=== PATIENT | male | born 2000 | race Caucasian/White ===

== ENCOUNTER 2021-07-04 08:37 | Inpatient (IN) | payer BC ==
[~2021-07-04] VITALS: Ht 190.5 cm; Wt 90.9 kg
[2021-07-04] MEDS ORDERED: AMOXICILLIN/CLA1 TA1 PO (09:09)
[2021-07-04 09:16] LABS: HEMATOCRIT 40.8 % (42.0-52.0); HEMOGLOBIN 14.5 g/dl (13.5-18.0); MEAN CELL VOLUME 90 fl (80.0-100.0); MEAN CORPUSCULAR HEMOGLOBIN 32 pg (27-31); MEAN CORPUSCULAR HGB CONC 36 g/dl (33.0-37.0); PLATELET COUNT 150 K/mm3 (130-400); RED BLOOD COUNT 4.54 M/mm3 (4.20-5.60); REDCELL DISTRIBUTION WIDTH-CV 15.1 % (11.5-14.5)
[2021-07-04 09:22] LABS: COLLECTION METHOD CLEAN CATCH
[2021-07-04 09:24] LABS: ALBUMIN 3.3 gm/dL (3.5-5.0); BILIRUBIN,TOTAL 3.9 mg/dL (0.2-1.2); C-REACTIVE PROTEIN 2.64 mg/dL (0.00-0.50); CALCIUM 8.6 mg/dL (8.4-10.2); CREATININE, serum 0.98 mg/dL (0.72-1.25); POTASSIUM 3.5 mmol/L (3.5-4.5)
[2021-07-04 09:28] LABS: MONOSCREEN POSITIVE
[2021-07-04 09:36] LABS: MUCOUS Present (NOT PRESENT); PH 6 (5-8); SQUAMOUS EPITHELIAL None Seen /hpf (0-10); URINE APPEARANCE Clear (CLEAR/HAZY); URINE BACTERIA None Seen /hpf (NONE SEEN); URINE BILIRUBIN Negative (NEGATIVE); URINE BLOOD 2+ (NEGATIVE); URINE COLOR Amber (YELLOW); URINE GLUCOSE Negative (NEGATIVE); URINE KETONE Trace (NEGATIVE); URINE LEUKOCYTE ESTERASE Negative (NEGATIVE); URINE NITRATE Negative (NEGATIVE); URINE PROTEIN(semi-quant) Negative (NEGATIVE); URINE UROBILINOGEN Negative (NEGATIVE)
[2021-07-04 09:48] LABS: BAND 2 % (0-10); LYMPHOCYTE 77 % (20.0-51.0); NEUTROPHILS 16 % (42.0-75.2)
[2021-07-04 09:49] LABS: PLATELET ESTIMATE NORMAL (NORMAL)
[2021-07-04 10:54] LABS: INR 1.1 (0.8-3.0); PROTHROMBIN TIME 12.3 SECONDS (9.7-12.8)
[2021-07-04] MEDS ORDERED: AMOXICILLIN 8751 TAB (12:13)
[2021-07-04] MEDS ORDERED: TESSALON PERLE200 MG PO (12:14)
[2021-07-04] MEDS ORDERED: ADVIL200 MG PO (12:15)
[2021-07-04 12:28] VITALS: BP 140/76; PULSE 105; TEMP 98.5
--- NOTE | 2021-07-04 12:36 | NUR ---
PT HAS JAUNDICED EYES, TRYING NOT TO TALK DUE TO SORE THROAT, WHITE PATCHES NOTED IN BACK OF PT THROAT, PT REPORTS SEVERE BODY ACHES 8/10 PAIN. PT ONLY MEDICATION USAGE WAS PRESCRIBED FROM URGENT CARE FROM VISIT MONDAY. DENIES ALLERGIES, DR. HENRY NOTIFIED PT HAD ARRIVED, ASSESSMENT PERFORMED, ADMISSION CO MPLETED NO OTHER NEEDS
--- NOTE | 2021-07-04 14:51 | NUR ---
CALLED CONSULT TO DR. HARRIS. PT CURRENTLY IN CT. PAIN MEDICATION GIVEN
[2021-07-04 15:24] VITALS: BP 142/80; PULSE 105; TEMP 99
[2021-07-04 15:44] LABS: STREP SCREEN NEGATIVE
[2021-07-04 19:57] VITALS: BP 131/73; PULSE 97; TEMP 98
--- NOTE | 2021-07-04 20:00 | NUR ---
Patient is resting in bed, alert and oriented x 4, some low tachycardia. NS AT 75 ML/HR. Assessment completed, no further needs at this time. Call light within reach.
[2021-07-05] VITALS (7 sets, daily range): BP systolic 111–144; BP diastolic 66–85; PULSE 90–116; TEMP 97.9–98.4
--- NOTE | 2021-07-05 06:25 | NUR ---
Patient unable to sleep at night. He complained about constant beeping of the IV pump. New IV site started at left forearm. Report will be given to day RN.
[2021-07-05 06:58] LABS: HEMOGLOBIN 13.3 g/dl (13.5-18.0); MEAN CELL VOLUME 90 fl (80.0-100.0); MEAN CORPUSCULAR HEMOGLOBIN 33 pg (27-31); MEAN CORPUSCULAR HGB CONC 37 g/dl (33.0-37.0); MEAN PLATELET VOLUME 10.3 fl (7.4-10.4); PLATELET COUNT 200 K/mm3 (130-400); RED BLOOD COUNT 4.04 M/mm3 (4.20-5.60); REDCELL DISTRIBUTION WIDTH-CV 15.4 % (11.5-14.5)
[2021-07-05 07:17] LABS: ALBUMIN 3.1 gm/dL (3.5-5.0); CALCIUM 8.5 mg/dL (8.4-10.2); CREATININE, serum 0.81 mg/dL (0.72-1.25); POTASSIUM 4.2 mmol/L (3.5-4.5)
[2021-07-05 07:20] LABS: HEMATOCRIT 36.4 % (42.0-52.0)
[2021-07-05 08:52] LABS: BAND 13 % (0-10); LYMPHOCYTE 15 % (20.0-51.0); NEUTROPHILS 71 % (42.0-75.2)
[2021-07-05 08:53] LABS: PLATELET ESTIMATE NORMAL (NORMAL)
[2021-07-05 10:39] LABS: ALBUMIN 3.2 gm/dL (3.5-5.0); BILIRUBIN,DIRECT 1.3 mg/dL (0.0-0.5); BILIRUBIN,TOTAL 2.1 mg/dL (0.2-1.2); TOTAL PROTEIN 7.6 gm/dL (6.2-8.1)
--- NOTE | 2021-07-05 11:48 | NUR ---
PT SITTING UP IN RECLINER. MORNING MEDICATIONS GIVEN. SHIFT ASSESSMENT COMPLETED. PT COMPLAINING OF SWOLLEN THROAT AND CONGESTION. DENIES ANY NEEDS AT THIS TIME. WILL CONTINUE TO MONITOR.
--- NOTE | 2021-07-05 13:48 | NUR ---
First visit from the luggage repairer. No needs right now.
--- NOTE | 2021-07-05 15:24 | NUR ---
mop worker met with patient to discuss discharge plan. Patient's grandmother Manju ([phone]) present at bedside. Patient currently lives at home with his mother Lorena ([phone]). Patient reports that he is a [employer] student however is in the process of working with his advisor to drop this semester due to compounding issues. He is independent with his activities of daily living and does not utilize any DME/O2 at home. Patient does not currently have a DPOA-HC. He is not and his mother is his established NOK. Patient will need a PCP before discharge. Information being obtained from the patient's mother of who not to establish with. Discharge plan: Home with family.
[2021-07-05 19:23] LABS: HEPATITIS A ANTIBODY-IGM Negative (Negative); HEPATITIS B CORE AB,TOTAL Negative (Negative); HEPATITIS B SURFACE ANTIGEN Negative (Negative); HEPATITIS C VIRUS ANTIBODY Negative (Negative)
[2021-07-05 19:57] LABS: HEPATITIS B SURFACE ANTIBODY <2.0 (())
--- NOTE | 2021-07-05 21:00 | NUR ---
Patient is in bed, alert and oriented x 4, VSS, states some pain in his throat. He is getting NS 75 ML/HR. Pain meds prn. Assessment completed, meds provided. No further needs at this time. Call light within reach.
[2021-07-06 00:29] VITALS: BP 123/76; PULSE 92; TEMP 98.2
[2021-07-06 04:25] VITALS: BP 132/71; PULSE 69; TEMP 98
[2021-07-06 06:50] LABS: HEMATOCRIT 37.6 % (42.0-52.0); HEMOGLOBIN 13.1 g/dl (13.5-18.0); MEAN CELL VOLUME 91 fl (80.0-100.0); MEAN CORPUSCULAR HEMOGLOBIN 32 pg (27-31); MEAN CORPUSCULAR HGB CONC 35 g/dl (33.0-37.0); MEAN PLATELET VOLUME 10.2 fl (7.4-10.4); PLATELET COUNT 244 K/mm3 (130-400); RED BLOOD COUNT 4.12 M/mm3 (4.20-5.60); REDCELL DISTRIBUTION WIDTH-CV 15.9 % (11.5-14.5)
[2021-07-06 07:03] LABS: CALCIUM 8.3 mg/dL (8.4-10.2); CREATININE, serum 0.8 mg/dL (0.72-1.25); MAGNESIUM 2.1 mg/dL (1.6-2.6); PHOSPHOROUS 3.8 mg/dL (2.3-4.7); POTASSIUM 4.3 mmol/L (3.5-4.5)
--- NOTE | 2021-07-06 07:07 | NUR ---
PT was not able to sleep along the night. Continues getting IV fluids. Denies SOB. Report given to day RN.
[2021-07-06 07:55] VITALS: BP 132/86; PULSE 88; TEMP 97.7
--- NOTE | 2021-07-06 08:42 | NUR ---
PT SITTING UP ON EDGE OF BED. MORNING MEDICATIONS GIVEN. SHIFT ASSESSMENT COMPLETED. REPORTS CONTINUOUS PAIN IN HIS THROAT OVERNIGHT, WITH DIFFICULTY SWALLOWING. DENIES ANY OTHER NEEDS. CONTINUING TO MONITOR.
[2021-07-06 08:52] LABS: BAND 11 % (0-10); NEUTROPHILS 56 % (42.0-75.2)
[2021-07-06 08:53] LABS: LYMPHOCYTE 31 % (20.0-51.0)
[2021-07-06 08:54] LABS: PLATELET ESTIMATE NORMAL (NORMAL)
[2021-07-06 12:15] VITALS: BP 132/80; PULSE 92; TEMP 98.1
[2021-07-06] MEDS ORDERED: MOTRIN SUSP20 MG/ML PO (13:10)
[2021-07-06] MEDS ORDERED: PREDNISONE5 MG/5 M1 PO (13:15)
[2021-07-06 14:05] LABS: EBV NUCLEAR ANTIGEN IGG Negative (())
[2021-07-06 14:07] LABS: EBV EARLY ANTIGEN IGG Positive (()); EBV IGM AB Positive (())
--- NOTE | 2021-07-06 14:51 | NUR ---
DISCHARGE INSTRUCTIONS GIVEN. IV D/C. PT PACKING UP AND BEING TAKEN DOWNSTAIRS AT THIS TIME.
--- NOTE | 2021-07-06 15:20 | NUR ---
Polisher Implant met with patient to discuss primary care as he is discharging today. TESSA provided list of local PCPs and patient is agreeable to have referral sent to [facility]. TESSA contacted Margaux at [facility] who advised Dr. Cantor has accepted patient and that the office will follow up with patient on scheduling an appointment.
== END 2021-07-06 14:53 | disposition home or self-care (01) | DRG 865 ==
LOC: COL.ER 08:37 → MEDICAL 09:59
PROVIDERS: Family Medicine; Internal Medicine Gastroenterology; ADMIT Internal Medicine
DX: B27.90 Infectious mononucleosis, unspecified without complication (principal); K83.1 Obstruction of bile duct; E87.1 Hypo-osmolality and hyponatremia; R13.10 Dysphagia, unspecified; R59.0 Localized enlarged lymph nodes; K75.9 Inflammatory liver disease, unspecified; R16.1 Splenomegaly, not elsewhere classified; D72.829 Elevated white blood cell count, unspecified; E80.6 Other disorders of bilirubin metabolism; R74.8 Abnormal levels of other serum enzymes; Z86.16 Personal history of COVID-19
CPT/HCPCS: 99223-AI; 99233-AI; 99239; J1885; J2405; J2930; J7030; J7120; Q9967